=== PATIENT | male | born 1955 | race Caucasian/White ===

== ENCOUNTER 2016-09-01 19:22 | Emergency (ER) | payer OTHER ==
[2016-09-01 19:46] VITALS: BP 118/76
[2016-09-01] MEDS ORDERED: methylPREDNISolone 125 MG* 2 ML VIAL IM ONE (20:10)
--- NOTE | 2016-09-01 20:13 | UC ---
Allergic Reaction HPI - HPI Summary HPI Summary: Itchy rash that started on forehead yesterday has quickly spread to entire body. Denies any new medications, foods, or known allergies. Works outside doing siding on houses -- no new products or chemicals. Tried topical benadryl but symptoms got worse. - History of Current Complaint Chief Complaint: UCGeneralIllness Stated Complaint: HIVES Time Seen by Provider: 09/01/16 20:00 Hx Obtained From: Patient Onset/Duration: Gradual Onset, Lasting Days Severity Initially: Mild Severity Currently: Severe Character: Swelling, Pruritus, Hives Aggrevating Factor(s): Nothing Alleviating Factor(s): Nothing Associated Signs And Symptoms: Positive: Rash - Allergies/Home Medications Allergies/Adverse Reactions: Allergies Allergy/AdvReac Type Severity Reaction Status Date / Time No Known Allergies Allergy Verified 09/01/16 19:39 Home Medications: Home Medications NK [No Home Medications Reported] 09/01/16 [History Confirmed 09/01/16] PMH/Surg Hx/FS Hx/Imm Hx Previously Healthy: Yes - Surgical History Surgical History: None - Family History Known Family History: Positive: Hypertension - Social History Occupation: Employed Full-time Alcohol Use: None Substance Use Type: None Smoking Status (MU): Former Smoker When Did the Patient Quit Smoking/Using Tobacco: 2013 - Immunization History Most Recent Influenza Vaccination: 2016 Most Recent Tetanus Shot: UTD Most Recent Pneumonia Vaccination: NONE Review of Systems Constitutional: Negative Skin: Rash Eyes: Negative ENT: Negative Respiratory: Negative Cardiovascular: Negative Gastrointestinal: Negative Genitourinary: Negative Motor: Negative Neurovascular: Negative Musculoskeletal: Negative Neurological: Negative Psychological: Negative All Other Systems Reviewed And Are Negative: Yes Physical Exam Triage Information Reviewed: Yes Appearance: Well-Appearing, No Pain Distress, Well-Nourished Vital Signs: Initial Vital Signs Temp 98.7 F 09/01/16 19:40 Pulse 85 09/01/16 19:40 Resp 16 09/01/16 19:40 BP 118/76 09/01/16 19:40 Pulse Ox 99 09/01/16 19:40 Vital Signs Reviewed: Yes Eye Exam: Normal, Other - PERRL Eyes: Positive: Conjunctiva Clear ENT: Positive: Normal ENT inspection, Hearing grossly normal, Pharynx normal, TMs normal Dental Exam: Normal Neck exam: Normal Neck: Positive: Supple, Nontender, No Lymphadenopathy Respiratory Exam: Normal Respiratory: Positive: Chest non-tender, Lungs clear, Normal breath sounds, No respiratory distress, No accessory muscle use Cardiovascular: Positive: No Murmur. Negative: RRR - irreg rhythm Musculoskeletal Exam: Normal Neurological Exam: Normal Neurological: Positive: Alert Psychological Exam: Normal Skin Exam: Other - severe urticaria diffuse Allergic Reaction Course/Dx - Differential Dx/Diagnosis Provider Diagnoses: urticaria. atrial fibrillation - Physician Notification/Consults Discussed Patient Care With: Kaitlynn Monaco Time Discussed With Above Provider: 20:24 Instructed by Provider To: MD Will See In ED Discharge - Discharge Plan Condition: Stable Disposition: TRANS HIGHER LVL OF CARE FAC
[2016-09-01] MEDS ORDERED: hydrOXYzine HCL TAB* 50 MG PO ONE (20:26)
[2016-09-01] MEDS ORDERED: hydrOXYzine HCL TAB* 25 MG ONE (20:31)
[2016-09-01] MEDS ORDERED: predniSONE TAB* 20 MG PO ONE (20:45)
== END 2016-09-01 21:03 | disposition short-term general hospital (02) ==
LOC: UCCORT 19:22
DX: L50.9 Urticaria, unspecified (principal); I48.91 Unspecified atrial fibrillation; Z87.891 Personal history of nicotine dependence
CPT/HCPCS: 93005; 99213; A9270-GY; G0463; J2930; J7512

== ENCOUNTER 2016-09-02 19:16 | Emergency (ER) | payer OTHER ==
[2016-09-02 19:30] VITALS: BP 119/76
[2016-09-02] MEDS ORDERED: predniSONE TAB* 20 MG PO ONE (19:52)
[2016-09-02] MEDS ORDERED: hydrOXYzine HCL TAB* 25 MG PO ONE (19:53)
--- NOTE | 2016-09-02 20:04 | UC ---
Skin Complaint HPI - HPI Summary HPI Summary: 60 yo male with hives x days unsure of causative agent no angioedema no wheezing no uri symptoms no new meds seen here yesterday - History of Current Complaint Chief Complaint: UCSkin Time Seen by Provider: 09/02/16 19:37 Stated Complaint: HIVES Hx Obtained From: Patient Onset/Duration: Gradual Onset, Lasting Days Timing: Constant Onset Severity: Mild Current Severity: Moderate Pain Intensity: 0 Pain Scale Used: 0-10 Numeric Location: Diffuse Character: Pruritus, Hives Aggravating: Nothing Alleviating: Antihistamines Associated Signs & Symptoms: Positive: Rash - Allergy/Home Medications Allergies/Adverse Reactions: Allergies Allergy/AdvReac Type Severity Reaction Status Date / Time No Known Allergies Allergy Verified 09/02/16 19:26 Review of Systems Constitutional: Negative Skin: Rash Eyes: Negative ENT: Negative Respiratory: Negative Cardiovascular: Negative Gastrointestinal: Negative Genitourinary: Negative Motor: Negative Neurovascular: Negative Musculoskeletal: Negative Neurological: Negative Psychological: Negative All Other Systems Reviewed And Are Negative: Yes PMH/Surg Hx/FS Hx/Imm Hx Previously Healthy: Yes Cardiovascular History: Atrial Fibrillation - Surgical History Surgical History: None - Family History Known Family History: Positive: Hypertension - Social History Alcohol Use: None Substance Use Type: None Smoking Status (MU): Former Smoker When Did the Patient Quit Smoking/Using Tobacco: 2013 - Immunization History Most Recent Influenza Vaccination: 2015 Most Recent Tetanus Shot: UTD Most Recent Pneumonia Vaccination: NONE Physical Exam Triage Information Reviewed: Yes Appearance: Well-Appearing, No Pain Distress Vital Signs: Initial Vital Signs Temp 98.3 F 09/02/16 19:24 Pulse 104 09/02/16 19:24 Resp 14 09/02/16 19:24 BP 119/76 09/02/16 19:24 Pulse Ox 97 09/02/16 19:24 Vital Signs Reviewed: Yes Eyes: Positive: Conjunctiva Clear ENT: Positive: Hearing grossly normal. Negative: Nasal congestion, Nasal drainage, Tonsillar exudate, Trismus, Muffled/hoarse voice Neck exam: Normal Neck: Positive: Supple, Nontender, No Lymphadenopathy Respiratory: Positive: Lungs clear, Normal breath sounds, No respiratory distress, No accessory muscle use Cardiovascular: Positive: RRR, No Murmur Musculoskeletal: Positive: Strength Intact, ROM Intact, No Edema Neurological Exam: Normal Neurological: Positive: Alert Psychological Exam: Normal Skin Exam: Other - hives, (+) dermatographia Course/Dx - Diagnoses Provider Diagnoses: urticaria Discharge - Discharge Plan Condition: Stable Disposition: HOME Prescriptions: Prednisone [Deltasone] 40 mg PO DAILY #10 tab Patient Education Materials: Urticaria (ED) Referrals: No Primary Care Phys,NOPCP [Primary Care Provider] - Additional Instructions: benadryl 25 mg 2 pills 4x day as needed for itching will cause drowsiness don't take and drive or work
== END 2016-09-02 20:05 | disposition home or self-care (01) ==
LOC: UCCORT 19:16
DX: L50.9 Urticaria, unspecified (principal); I48.91 Unspecified atrial fibrillation; Z87.891 Personal history of nicotine dependence
CPT/HCPCS: 99212; A9270-GY; G0463; J7512

== ENCOUNTER 2016-09-03 17:02 | Emergency (ER) | payer OTHER ==
[2016-09-03 17:51] VITALS: BP 132/77
--- NOTE | 2016-09-03 18:02 | UC ---
Richard Tavares Rebecca, scribed for Stefan Sotelo MD on 09/03/16 at 1728 . Skin Complaint HPI - HPI Summary HPI Summary: Pt is a 60 y/o M who presents to ED c/o worsening rash. Sx began 3 days ago as diffuse, pruritc hives on the UEs and torso s/p exercise. Sx have been constant and worsening since onset. Rash is now present on the UEs, LEs, abdomen, palms of the hands and groin. Additionally c/o rhinorrhea and bilateral foot swelling with pain. Denies rash in the mouth, CP, SOB, difficulty breathing, fever, chills, swollen glands and arthralgias. Sx aggravated and alleviated by nothing. Confirms rash did not change location. Denies any new medications, pets , furniture, cars, clothing or detergents. No known tick bites. He presented to [facility] 2 nights ago c/o diffuse pruritic rash, p/w A Fib, was given Prednisone and transferred to ED. He additionally presented last night with slight worsening of symptoms. - History of Current Complaint Chief Complaint: UCSkin Time Seen by Provider: 09/03/16 17:10 Stated Complaint: RE CK HIVES Hx Obtained From: Patient Onset/Duration: Lasting Days - 3 days, Still Present Timing: Constant Current Severity: Moderate Pain Intensity: 7 Pain Scale Used: 0-10 Numeric Location: Diffuse Character: Pruritus, Hives Aggravating: Nothing Alleviating: Nothing - Allergy/Home Medications Allergies/Adverse Reactions: Allergies Allergy/AdvReac Type Severity Reaction Status Date / Time No Known Allergies Allergy Verified 09/03/16 17:23 Review of Systems Constitutional: Negative Skin: Rash - See Comments Eyes: Negative ENT: Nasal Discharge Respiratory: Negative Cardiovascular: Negative Gastrointestinal: Negative Genitourinary: Negative Motor: Negative Neurovascular: Negative Musculoskeletal: Other: - See comments Neurological: Negative Psychological: Negative All Other Systems Reviewed And Are Negative: Yes - Comments Additional Review of Systems Comments: POSITIVE: Rash characterized as diffuse, pruritis hives on the UEs, LEs, abdomen , palms of the hands and groin. Rhinorrhea. Bilateral foot swelling with pain. NEGATIVE: Rash in the mouth. CP, SOB, difficulty breathing, fever, chills, swollen glands and arthralgias. PMH/Surg Hx/FS Hx/Imm Hx Cardiovascular History: Other Other Cardiovascular History: Negative CAD - Surgical History Surgical History: None - Family History Known Family History: Positive: Hypertension - Social History Alcohol Use: None Substance Use Type: None Smoking Status (MU): Former Smoker When Did the Patient Quit Smoking/Using Tobacco: 2014 - Immunization History Most Recent Influenza Vaccination: 2016 Most Recent Tetanus Shot: UTD Most Recent Pneumonia Vaccination: NONE Physical Exam Triage Information Reviewed: Yes Vital Signs: Initial Vital Signs Temp 99.2 F 09/03/16 17:07 Pulse 115 09/03/16 17:07 Resp 16 09/03/16 17:07 BP 133/74 09/03/16 17:07 Pulse Ox 95 09/03/16 17:07 Vital Signs Reviewed: Yes - Additional Comments The patient is well-nourished in no acute distress and in no acute pain. The skin is warm and dry. He has discrete lesions. Lesions on his palms with none on his soles. They are diffuse, have a pale center. Has some purpuric lesions over his LEs. There are no vesicles in the lesions and they do not shalonda. HEENT: The head is normocephalic and atraumatic. The conjunctivae are clear and without drainage. Nares are patent and without drainage. Mouth reveals moist mucous membranes and the throat is without erythema and exudate. No rash in the oral mucosa. The external ears are intact. The ear canals are patent and without drainage. The tympanic membranes are intact. Neck is supple with full range of motion and non-tender. There is no cervical or supraclavicular adenopathy. Respiratory: Chest is non-tender. Lungs are clear to auscultation and breath sounds are symmetrical and equal. No swelling of the lips, tongue. Cardiovascular: Hear is regular rhythm and tachycardic. There is no murmur or rub auscultated. There is no peripheral edema and pulses are symmetrical and equal. Neurological: Patient is alert and oriented to person, place and time. The patient has symmetrical motor strength in all four extremities. Cranial nerves are grossly intact. Deep tendon reflexes are symmetrical and equal in all four extremities. Psychiatric: The patient has an appropriate affect and does not exhibit any anxiety or depression. Diagnostics - EKG Cardiac Rate: Tachycardia - 106 bpm Cardiac Rhythm: Sinus: Normal - Poor R wave progression ST Segment: Normal - No ST elevation Re-Evaluation - Re-Evaluation First Eval Re-Evaluation Time: 17:53 Change: Worse Comment: Explained that his rash is getting worse. Discussed transfer and whether [facility] or [place] is preferred for him. Patient states he would prefer [place]. Course/Dx - Course Course Of Treatment: Pt is a 60 y/o M who presents to ED c/o rash for 3 days, characterized as diffuse, pruritc hives, now present on the UEs, LEs, abdomen, palms of the hands and groin. Additionally c/o rhinorrhea and bilateral foot swelling with pain. Denies rash in the mouth, CP, SOB, difficulty breathing, fever, chills, swollen glands and arthralgias. Confirms rash did not change location. Denies any new medications, pets, furniture, cars, clothing or detergents. No known tick bites. He presented to [facility] 2 nights ago c/o diffuse pruritic rash, p/w A Fib, was given Prednisone and transferred to ED. He additionally presented last night with slight worsening of symptoms. In the ED course, rash is worsening. EKG reveals sinus tachy with no ST elevation. Discussed care of pt with Lucie Mcfarlane who accepts for transfer. He will be sign out AMA and transport to [place] ED via private vehicle with Dx of vasculitis, purpura, erythema multiforme, urticaria. He understands and agrees. - Differential Diagnoses - Skin Complaint Differential Diagnoses: Drug Rash, Bonilla-Trevor Syndrome, Viral Exanthem, Other - hsp, vasculitis, erythema multiforme, lymes, - Diagnoses Provider Diagnoses: Vasculitis, purpura, erythema multiforme, urticaria. - Physician Notification/Consults Discussed Patient Care With: Lucie Mcfarlane Time Discussed With Above Provider: 17:55 Instructed by Provider To: Other - Accepts pt as transfer. Discharge - Discharge Plan Condition: Good Disposition: AGAINST MEDICAL ADVICE Referrals: No Primary Care Phys,NOPCP [Primary Care Provider] - The documentation as recorded by the Richard chao Rebecca accurately reflects the service I personally performed and the decisions made by me, Stefan Sotelo MD.
== END 2016-09-03 18:11 | disposition left against medical advice (07) ==
LOC: UCCORT 17:02
DX: I77.6 Arteritis, unspecified (principal); D69.2 Other nonthrombocytopenic purpura; L50.9 Urticaria, unspecified; F17.210 Nicotine dependence, cigarettes, uncomplicated
CPT/HCPCS: 93005; 99213; G0463

== ENCOUNTER 2016-09-04 17:39 | Emergency (ER) | payer OTHER ==
--- NOTE | 2016-09-04 17:52 | UC ---
Skin Complaint HPI - HPI Summary HPI Summary: 60 year old male presents with complains of worsening rash secondary to working out in the yard. - History of Current Complaint Time Seen by Provider: 09/04/16 17:51 Stated Complaint: WORSENING RASH - Allergy/Home Medications Allergies/Adverse Reactions: Allergies Allergy/AdvReac Type Severity Reaction Status Date / Time No Known Allergies Allergy Verified 09/04/16 18:01 Home Medications: Home Medications diPHENhydraMINE PO* [Benadryl PO 50 MG CAP*] 50 mg PO TID PRN 09/04/16 [History Confirmed 09/04/16] Review of Systems Constitutional: Negative Skin: Rash Eyes: Negative ENT: Negative Respiratory: Negative Cardiovascular: Negative Gastrointestinal: Negative Genitourinary: Negative Motor: Negative Neurovascular: Negative Musculoskeletal: Negative Neurological: Negative Psychological: Negative All Other Systems Reviewed And Are Negative: Yes PMH/Surg Hx/FS Hx/Imm Hx - Surgical History Surgical History: None - Family History Known Family History: Positive: Hypertension - Social History Alcohol Use: None Substance Use Type: None Smoking Status (MU): Former Smoker When Did the Patient Quit Smoking/Using Tobacco: 2013 - Immunization History Most Recent Influenza Vaccination: 2016 Most Recent Tetanus Shot: UTD Most Recent Pneumonia Vaccination: NONE Physical Exam Triage Information Reviewed: Yes Eye Exam: Normal ENT Exam: Normal Dental Exam: Normal Neck exam: Normal Neck: Positive: 1 Respiratory Exam: Normal Cardiovascular Exam: Normal Abdominal Exam: Normal Musculoskeletal Exam: Normal Neurological Exam: Normal Psychological Exam: Normal Skin: Positive: rashes Course/Dx - Diagnoses Provider Diagnoses: rash Discharge - Discharge Plan Condition: Stable Disposition: HOME Prescriptions: Ranitidine HCl [Zantac] 150 mg PO BID #30 tab Triamcinolone 0.1% CREAM(NF) [Kenalog Cream 0.1%(NF)] 1 applic TOPICAL TID PRN # 180 gm PRN Reason: Hives hydrOXYzine HCL TAB* [Atarax 25 MG TAB*] 25 mg PO QID PRN #60 tab PRN Reason: Hives predniSONE TAB* [Deltasone TAB*] 10 mg PO DAILY #21 tab Patient Education Materials: Acute Rash (ED) Referrals: No Primary Care Phys,NOPCP [Primary Care Provider] -
[2016-09-04 18:05] VITALS: BP 114/77
[2016-09-04] MEDS ORDERED: methylPREDNISolone ACETATE 80* 80 MG/ML 1 ML VIAL IM ONE (18:08)
== END 2016-09-04 18:50 | disposition home or self-care (01) ==
LOC: UCCORT 17:39
DX: R21 Rash and other nonspecific skin eruption (principal); Z87.891 Personal history of nicotine dependence
CPT/HCPCS: 96372; 99212; G0463; J1040

== ENCOUNTER 2016-09-12 16:56 | Emergency (ER) | payer OTHER ==
[2016-09-12 17:15] VITALS: BP 113/72
--- NOTE | 2016-09-12 17:29 | UC ---
Dental HPI - HPI Summary HPI Summary: pt presents with c/o of chipped tooth right upper 1st premolar ~ 2 weeks ago. Pt has poor dentition and is missing multiple teeth. 2. pt c/o "burning cough" x 1 week - History of Current Complaint Chief Complaint: UCDentalProblem Stated Complaint: DENTAL Time Seen by Provider: 09/12/16 17:11 Hx Obtained From: Patient Onset/Duration: Sudden Onset - chipped tooth, Gradual Onset - cough Severity: Mild Aggravating: Heat, Cold, Chewing Related History: Other - poor dentition - Allergies/Home Medications Allergies/Adverse Reactions: Allergies Allergy/AdvReac Type Severity Reaction Status Date / Time No Known Allergies Allergy Verified 09/12/16 17:08 PMH/Surg Hx/FS Hx/Imm Hx Previously Healthy: Yes - Surgical History Surgical History: None - Family History Known Family History: Positive: Hypertension - Social History Occupation: Employed Full-time Lives: With Family Alcohol Use: None Substance Use Type: None Smoking Status (MU): Former Smoker When Did the Patient Quit Smoking/Using Tobacco: 2013 - Immunization History Most Recent Influenza Vaccination: 2015 Most Recent Tetanus Shot: UTD Most Recent Pneumonia Vaccination: NONE Review of Systems Constitutional: Negative Skin: Negative Eyes: Negative ENT: Other - dental pain, right side gum swelling Respiratory: Cough Cardiovascular: Negative Gastrointestinal: Negative Genitourinary: Negative Motor: Negative Neurovascular: Negative Musculoskeletal: Negative Neurological: Negative Psychological: Negative All Other Systems Reviewed And Are Negative: Yes Physical Exam Triage Information Reviewed: Yes Appearance: Well-Appearing Vital Signs: Initial Vital Signs Temp 98.7 F 09/12/16 17:10 Pulse 86 09/12/16 17:10 Resp 16 09/12/16 17:10 BP 113/72 09/12/16 17:10 Pulse Ox 98 09/12/16 17:10 Vital Signs Reviewed: Yes Eye Exam: Normal ENT Exam: Normal Dental Exam: Other Dental: Positive: Percussion Tenderness @ - right upper 1st premolar,, Gross Decay/Caries @ - multiple,, Abscess @ - right upper gum Neck exam: Normal Respiratory Exam: Normal Cardiovascular Exam: Normal Musculoskeletal Exam: Normal Neurological Exam: Normal Psychological Exam: Normal Skin Exam: Normal Dental Complaint Course/Dx - Differential Dx/Diagnosis Differential Diagnosis/Dx: Dental Abscess, Fractured Tooth, Other - cough Provider Diagnoses: dental abscess. fractured tooth Discharge - Discharge Plan Condition: Stable Disposition: HOME Prescriptions: Amoxicillin PO (*) [Amoxicillin 500 MG CAP*] 500 mg PO Q8H #30 cap Benzonatate CAP* [Tessalon 100 MG CAP*] 100 mg PO TID PRN #30 cap PRN Reason: Cough Ibuprofen TAB* [Motrin TAB* 600 MG] 600 mg PO Q8H PRN #21 tab PRN Reason: Pain Patient Education Materials: Acute Dental Trauma (ED), Acute Cough (ED) Referrals: [facility] [place] [facility] [Outside] No Primary Care Phys,NOPCP [Primary Care Provider] - Additional Instructions: Please follow up with a dental care provider as soon as possible.
== END 2016-09-12 17:45 | disposition home or self-care (01) ==
LOC: UCCORT 16:56
DX: S02.5XXA Fracture of tooth (traumatic), initial encounter for closed fracture (principal); K04.7 Periapical abscess without sinus; Z87.891 Personal history of nicotine dependence; X58.XXXA Exposure to other specified factors, initial encounter; Y92.9 Unspecified place or not applicable
CPT/HCPCS: 99212; G0463